=== PATIENT | male | born 1965 | race African-American/Black ===

== ENCOUNTER → 2017-07-19 | Outpatient (CLI) | payer OTHER ==
--- NOTE | 2017-07-19 18:20 | Diagnostic Imaging Report ---
TECHNIQUE: Magnetic resonance imaging of the RIGHT KNEE was performed WITHOUT injected contrast. HISTORY: AVULSION OF RT PATELLAR TENDON COMPARISON: None available. FINDINGS: LIGAMENTS AND TENDONS: ACL: Intact PCL: Intact Collateral ligaments: Intact, mildly increased intrasubstance signal the proximal fibular collateral ligament. Iliotibial band: Unremarkable Popliteal tendon: Intact Extensor mechanism: High-grade, near complete to complete tearing of the proximal patellar ligament, laxity of the adjacent fibers. JOINT: Menisci: Medial: Horizontal tear involving the posterior horn and adjacent body, extending to the free margin and adjacent tibial articular surface. Lateral: Complex tearing and attenuation of the anterior horn and adjacent body, peripheral extrusion of the body remnants. Articular Cartilage: Medial Compartment: No focal defect. Lateral Compartment: Intermediate grade erosion, full-thickness fissuring, and fibrillation involving the weight-bearing cartilage of the femoral condyle and tibial plateau. Patellofemoral Compartment: No focal defect. Joint Fluid: Trace fluid within the joint. A nondistended Hammonds's cyst. BONES: No focal or infiltrative bone marrow replacing abnormality. No acute fracture. Small eccentric sclerotic focus at the lateral distal femoral metaphysis, likely an incidental benign involuted fibro-osseous lesion. SOFT TISSUES: Marked anterior soft tissue edema and areas of confluent fluid signal intensity, which may reflect hematoma and/or extravasated joint fluid. The medial and lateral retinacula adjacent to the patella are disrupted, lateral greater than medial. IMPRESSION: 1. High-grade proximal patellar tendon tear, near complete to complete. 2. Proximal fibular collateral ligament sprain. 3. Mild lateral compartment osteoarthrosis. 4. Degenerative tearing of the anterior horn of the lateral meniscus. 5. Horizontal tear of the medial meniscus. Signed by: Dr. Valentino Hale D.O., M.M.M. on 07/19/2017 6:16 PM
== END ==
LOC: MRI 16:02
PROVIDERS: ATTEND Family Medicine
DX: S86.891A Other injury of other muscle(s) and tendon(s) at lower leg level, right leg, initial encounter (principal)

== ENCOUNTER → 2017-08-09 | Day surgery (SDC) | payer BC ==
[~2017-08-09] MED LIST: BACITRACIN 50,000 UNIT VIAL ONE; BUPIVACAINE HCL 0.5% INJ 30 ML VIAL INJ ONE; CEFAZOLIN SOD 2 GM/D5W 50ML 50 ML IV ONE; DEXAMETHASONE SOD PHOS INJ 4 MG/ML VIAL ONE; FENTANYL CITRATE/PF 100MCG/2 ML INJ ONE; KETAMINE HCL INJ 50 MG/ML 10 ML VIAL ONE; KETOROLAC TROMETHAMINE 30 MG/ML VIAL ONE; LIDOCAINE HCL 2% LOCAL INJ 5 ML SDV VIAL INJ ONE; MIDAZOLAM HCL 2 MG/2 ML VIAL ONE; MORPHINE SULFATE INJ 10 MG/ML ONE; ONDANSETRON HCL INJ 2 MG/ML VIAL ONE; PROPOFOL IV EMULSION 10 MG/ML 20 ML VIAL ONE; SEVOFLURANE INHAL SOLN 250 ML PEN BTL ONE
--- NOTE | 2017-08-11 14:43 | Operative Report ---
DATE OF PROCEDURE: August 09, 2017 PREOPERATIVE DIAGNOSIS: Right patellar tendon rupture. POSTOPERATIVE DIAGNOSIS: Right patellar tendon rupture. PROCEDURES PERFORMED 1. Patient underwent a right patellar tendon reconstruction. 2. Repair of the extensor retinaculum. SURGERY AIDE: None. ANESTHESIA: General endotracheal intubation anesthesia. IV FLUIDS: Per the anesthesia record. DESCRIPTION OF PROCEDURE: Mr. Fall was taken to the operating room, placed in supine position on the operating table. Following induction of general anesthesia as well as endotracheal intubation, the patient's right lower extremity was examined under anesthesia. He was found to have swelling and bruising about his knee joint. He had a palpable defect at the inferior pole of the patella consistent with his diagnosis of patellar tendon rupture. The patient's lower extremity was prepped and draped in standard surgical fashion. The case was begun by creating incision overlying the anterior aspect of the knee joint. This incision was carried through skin only. Blunt dissection was used to deepen incision to the level of extensor mechanism. There was a complete avulsion of the patellar tendon with extensive tearing of the retinacular tissues both medially and laterally. This wound was copiously irrigated. There were full-thickness skin flaps elevated both medially and laterally. The paratenon was also elevated at the time of the surgery. The patella tendon was debrided sharply to remove devitalized tissue. The insertion site to the patella itself was debrided to a bleeding bony bed. FiberWire suture was woven through the patellar tendon in a whip stitch type fashion. Drill holes were then passed through the patella beginning in the distal pole and exiting the anterior surface of the patella. The sutures were then pulled through the drill holes and the patellar tendon was advanced and tied firmly into its normal insertion site. The retinaculum and soft tissues overlying the patellar tendon were then oversewn using FiberWire suture. This resulted in complete reapproximation of the patient's injury. The wound was again copiously irrigated. Soft tissues were closed in a multilayer fashion. Sterile dressings were applied and the patient was then awakened and taken to the post anesthesia care unit in stable condition. Job#: [id number] LISA
== END | disposition home or self-care (01) ==
LOC: OR 07:21
PROVIDERS: ATTEND Specialist
DX: M66.261 Spontaneous rupture of extensor tendons, right lower leg (principal); S83.221A Peripheral tear of medial meniscus, current injury, right knee, initial encounter; W17.89XA Other fall from one level to another, initial encounter; Z01.810 Encounter for preprocedural cardiovascular examination; Z68.30 Body mass index [BMI] 30.0-30.9, adult
CPT/HCPCS: 27380; 93005; J1100; J1885; J2001; J2250; J2270; J2405

== ENCOUNTER 2017-10-12 12:45 | Outpatient (RCR) | payer BC | END 2017-10-13 | LOC: PT 12:45 | PROVIDERS: ATTEND Specialist | DX: M24.661 Ankylosis, right knee (principal); S76.111A Strain of right quadriceps muscle, fascia and tendon, initial encounter ==

== ENCOUNTER 2017-10-20 12:54 | Outpatient (RCR) | payer BC | END 2017-11-12 | LOC: PT 12:54 | PROVIDERS: ATTEND Specialist | DX: S76.111A Strain of right quadriceps muscle, fascia and tendon, initial encounter (principal); M62.81 Muscle weakness (generalized); R26.2 Difficulty in walking, not elsewhere classified ==